=== PATIENT | female | born 1970 | race Caucasian/White ===

== ENCOUNTER 2018-05-14 17:49 | Emergency (ER) | payer MEDICAID, OTHER ==
[~2018-05-14] VITALS: Ht 149.9 cm; Wt 78.0 kg
--- NOTE | 2018-05-14 17:50 | NUR ---
PT BIBA BLS TO BED 4
[2018-05-14] MEDS ORDERED: NACL 0.9% 1,000 ML IV SCH (17:54)
[2018-05-14] MEDS ORDERED: NACL 0.9% 1,000 ML IV ONE (17:54)
[2018-05-14 17:55] VITALS: BP 131/76
--- NOTE | 2018-05-14 17:59 | NUR ---
PT. BIB ALS DUE TO ABD PAIN X 4 HOURS. PT. STATES " I WAS EATING MCDONALDS AND ALL OF A SUDDEN MY STOMACH STARTED HURTING". 6/10 CRAMPING NON RADIATING PAIN ON R SIDE OF UMBILICUS. ABD IS ROUND AND SOFT AND DISTENDED AND TENDER UPON PALPATION TO R SIDE. PT. DENIES N/V/D. PT IS AWAKE AND ABLE TO SPEAK IN FULL AND COMPLETE SENTENCES. RR EVEN AND UNLABORED. PT. ARRIVED WITH 18G TO L AC. PT. DENIES ANY ALLERGIES TO MEDICATIONS AT THIS TIME.PT STATES " I WAS VERY DIZZY EARLIER". ER MD NOTIFIED. SAFETY PRECAUTIONS IMPLEMENTED. WILL CONTINUE TO MONITOR.
[2018-05-14 18:30] LABS: BASOPHILS % (AUTO) 0.4 % (0.0-2.0); EOSINOPHILS # (AUTO) 0.2 K/uL (0-0.4); EOSINOPHILS % (AUTO) 1.7 % (0.0-4.0); HEMATOCRIT 40.6 % (36-48); HEMOGLOBIN 13.6 g/dL (12.0-16.0); LYMPHOCYTES # (AUTO) 3.1 K/uL (2.5-16.5); LYMPHOCYTES % (AUTO) 31.2 % (20.5-51.1); MEAN CORPUSCULAR HEMOGLOBIN 29 pg (27-31); MEAN CORPUSCULAR HGB CONC 34 g/dL (33-37); MEAN CORPUSCULAR VOLUME 85.9 fL (80-94); MONOCYTES # (AUTO) 0.7 K/uL (0.8-1.0); MONOCYTES % (AUTO) 7.5 % (1.7-9.3); NEUTROPHILS # (AUTO) 5.9 K/uL (1.8-7.7); NEUTROPHILS % (AUTO) 59.2 % (42.2-75.2); PLATELET COUNT (AUTO) 313 K/uL (140-450); RED BLOOD CELL COUNT(AUTO) 4.73 MIL/uL (4.20-5.40); RED CELL DISTRIBUTION WIDTH 13.2 % (11.6-13.7)
[2018-05-14 18:37] LABS: APPEARANCE,URINE CLEAR (CLEAR); BILIRUBIN,URINE NEGATIVE (NEGATIVE); BLOOD, URINE NEGATIVE (NEGATIVE); COLOR,URINE YELLOW (YELLOW); LEUKOCYTE ESTERASE ,URINE NEGATIVE (NEGATIVE); NITRITE, URINE POSITIVE (NEGATIVE); UGLUCOSE NEGATIVE (NEGATIVE)
[2018-05-14 19:10] LABS: ALBUMIN 4.1 g/dL (3.4-5.0); ANION GAP 9.6 (8-16); POTASSIUM 3.6 mmol/L (3.5-5.1); TOTAL BILIRUBIN 0.3 mg/dL (0.0-1.0)
[2018-05-14 21:11] VITALS: BP 125/82
--- NOTE | 2018-05-14 21:11 | NUR ---
Patient discharged with v/s stable. Written and verbal after care instructions given and explained. Patient alert, oriented and verbalized understanding of instructions. Ambulatory with steady gait. All questions addressed prior to discharge. ID band removed. Patient advised to follow up with PMD. Rx of MOTRIN, PRILOSEC, CIPRO given. Patient educated on indication of medication including possible reaction and side effects. Opportunity to ask questions provided and answered. IV removed, catheter intact and site benign. Applied folded 4x4 gauze and tape to stop bleeding.
== END 2018-05-14 21:11 | disposition home or self-care (01) ==
LOC: MED 17:49
DX: R16.0 Hepatomegaly, not elsewhere classified (principal); I10 Essential (primary) hypertension
CPT/HCPCS: 36415; 74176; 76705; 80053; 81003; 81025; 82150; 82948; 83690; 84703; 85025; 99285; J7030; Q0092